=== PATIENT | female | born 1990 | race Caucasian/White ===

== ENCOUNTER → 2016-04-23 | Outpatient (CLI) | payer MEDICAID | LOC: M OUTALCOH 08:31 | PROVIDERS: ATTEND Psychiatry & Neurology Psychiatry | DX: Z03.89 Encounter for observation for other suspected diseases and conditions ruled out (principal) ==

== ENCOUNTER → 2016-05-19 | Outpatient (RCR) | payer MEDICAID | LOC: M OUTALCOH 04-30 13:40 | PROVIDERS: ATTEND Psychiatry & Neurology Psychiatry ==

== ENCOUNTER 2023-05-25 08:11 | Day surgery (SDC) | payer OTHER ==
[~2023-05-25] VITALS: Ht 162.6 cm; Wt 81.6 kg
[~2023-05-25 08:11] MED LIST: LIDOCAINE 2% 100MG/5ML SDV (FOR ANES.) As Ordered ONE; MM S100C PO; OMEP1CAP73 PO; SEMA1PEN2 SQ; propofoL 200 MG/20 ML VIAL As Ordered ONE
[2023-05-25] MEDS: NS 1,000 ML IV ONE (08:26)
[2023-05-25 08:28] VITALS: TEMP 96.8
[2023-05-25] MEDS ORDERED: fentaNYL 100 MCG/2 ML INJECTION As Ordered ONE (08:45)
[2023-05-25 09:37] VITALS: BP 134/76; O2SAT 100
== END 2023-05-25 09:49 | disposition home or self-care (01) ==
LOC: M OPP 08:11
PROVIDERS: ATTEND Internal Medicine Gastroenterology
DX: R11.2 Nausea with vomiting, unspecified (principal); R10.13 Epigastric pain; K29.70 Gastritis, unspecified, without bleeding; R19.4 Change in bowel habit; K63.5 Polyp of colon; K64.8 Other hemorrhoids; K22.89 Other specified disease of esophagus; R12 Heartburn; Z79.899 Other long term (current) drug therapy; F17.290 Nicotine dependence, other tobacco product, uncomplicated; Z86.69 Personal history of other diseases of the nervous system and sense organs; Z88.0 Allergy status to penicillin; Z88.1 Allergy status to other antibiotic agents; Z91.040 Latex allergy status
CPT/HCPCS: 43239; 45380; 88305; J3010